=== PATIENT | female | born 1985 | race Caucasian/White ===

== ENCOUNTER 2021-03-04 09:53 | Emergency (ER) | payer OTHER ==
[2021-03-04 10:31] VITALS: TEMP 97.7; BMI 32.8
[2021-03-04] MEDS ORDERED: guaiFENesin 200 MG/10 ML 10 ML UNIT-DOSE CUPS PO ONE (11:04)
[2021-03-04] MEDS ORDERED: ONDANSETRON *ODT* 4 MG TABLET SL ONE (11:08)
[2021-03-04] MEDS ORDERED: guaiFENesin 200 MG/10 ML 10 ML UNIT-DOSE CUPS ONE (11:23)
[2021-03-04] MEDS ORDERED: ONDANSETRON *ODT* 4 MG TABLET ONE (11:23)
[2021-03-04 11:45] VITALS: BP 118/84; PULSE 74
[2021-03-05 14:13] LABS: SARS-CoV-2 NAA Not Detected (Not Detected)
== END 2021-03-04 11:45 | disposition home or self-care (01) ==
LOC: JER 09:53
DX: R05 Cough (principal); J02.9 Acute pharyngitis, unspecified; J34.89 Other specified disorders of nose and nasal sinuses; Z11.52 Encounter for screening for COVID-19
CPT/HCPCS: 87804; 99283-25; C9803; Q0162; U0003; U0005

== ENCOUNTER 2021-03-04 21:57 | Emergency (ER) | payer OTHER ==
[2021-03-04 22:31] VITALS: BP 183/68; PULSE 77; TEMP 98; BMI 31.8
[2021-03-04] MEDS ORDERED: DEXAMETHASONE 4 MG TABLET (FP) PO ONE (23:07)
[2021-03-04] MEDS ORDERED: DEXAMETHASONE SOD PHOSPHATE 10 MG/1 ML VIAL ONE (23:57)
[2021-03-05] MEDS ORDERED: KETOROLAC TROMETHAMINE 30 MG/1 ML VIAL IM ONE (02:33)
[2021-03-05] MEDS ORDERED: AZITHROMYCIN IVPB 500 MG in DEXTROSE 5%-WATER - 250 ML IVPB ONE (02:34)
[2021-03-05] MEDS ORDERED: AZITHROMYCIN 500 MG TABLET PO ONE (02:38)
[2021-03-05] MEDS ORDERED: KETOROLAC TROMETHAMINE 30 MG/1 ML VIAL ONE (02:39)
[2021-03-05] MEDS ORDERED: AZITHROMYCIN 250 MG TABLET ONE (02:39)
== END 2021-03-05 04:07 | disposition home or self-care (01) ==
LOC: JER 21:57
PROC: 3E0233Z Introduction of Anti-inflammatory into Muscle, Percutaneous Approach (ICD-10-PCS; principal; 2021-03-04)
DX: J03.80 Acute tonsillitis due to other specified organisms (principal)
CPT/HCPCS: 71046-TC-FY; 84703; 87880; 93005; 93010; 99285-25